=== PATIENT | female | born 1995 | race Caucasian/White ===

== ENCOUNTER 2018-03-07 06:58 | Inpatient (IN) | payer MEDICAID ==
[2018-03-07] VITALS (20 sets, daily range): BP systolic 91–138; BP diastolic 48–87; PULSE 71–108; TEMP 97.4–98.3
[~2018-03-07] VITALS: Ht 162.6 cm; Wt 85.0 kg
--- NOTE | 2018-03-07 07:00 | NUR ---
Patient ambulatory onto unit for labor check with report of contractions since 299. Patient changes into gown, plan of care discussed. Patient reports good movement, denies vaginal bleeding or leaking of fluid. EFMs on, VS taken. SVE /1 per Diego PRATT. notified, orders received.
[2018-03-07 07:36] LABS: BASO % 0.1 % (0.0-2.0); EOS # 0.2 (0.0-0.7); EOS % 1.6 % (0-4.0); GRAN # 5.2 (1.4-6.5); GRAN % 53.6 % (42.2-75.2); HEMOGLOBIN 10.5 g/dl (12.5-16.0); LYMPH # 3.6 (1.2-3.4); MEAN CELL VOLUME 81 fl (80.0-100.0); MEAN CORPUSCULAR HEMOGLOBIN 26 pg (27.0-31.0); MEAN CORPUSCULAR HGB CONC 32 g/dl (33.0-37.0); MONO # 0.7 (0.1-0.6); MONO % 7.3 % (1.7-9.3); PLATELET COUNT 202 K/mm3 (130-400); RED BLOOD COUNT 4.11 M/mm3 (4.10-5.30); REDCELL DISTRIBUTION WIDTH-CV 14.8 % (11.5-14.5)
[2018-03-07 07:40] LABS: HEMATOCRIT 33.3 % (37.0-47.0)
[2018-03-07 07:47] LABS: TRICYCLIC ANTIDEPRESS URINE NEGATIVE
--- NOTE | 2018-03-07 07:50 | NUR ---
Pt sitting upright for epidural placement. Difficulty tracing FHR due to maternal position. RN at bedside adjusting monitors. FHR audible. 0758-Test dose administered by Moreno Aguilar CRNA. No adverse effects noted. See anesthesia record. Pt repositioned WL. Plan of care and safety reviewed. Call light within reach. No questions or concerns at this time.
--- NOTE | 2018-03-07 08:30 | NUR ---
Dr. Smyth on unit. Reviews FHR tracing. To patient room - SVE with AROM. 9/100/+1 with clear fluid noted. Plan of care reviewed with patient.
--- NOTE | 2018-03-07 09:25 | NUR ---
Recurrent early FHR decelerations noted. Patient c/o feeling increased vaginal pressure. SVE - complete/+1. Dr. Smyth on unit and notified.
--- NOTE | 2018-03-07 09:47 | NUR ---
0930 - Patient begins to push with contractions. Dr. Smyth remains on unit. 43 - Dr. Smyth called to room for delivery. Patient prepped and continues to push with contractions. 47 - Spontaneous vaginal delivery of viable female infant by Dr. Smyth. Cord clamped and cut and to the care of the nursery RN. 54 - Spontaneous delivery of placenta by Dr. Smyth. Pitocin infusing at 333ml/hr per orders and protocol. Fundus firm, lochia WNL. Repair of 2nd degree laceration by Dr. Smyth.
[2018-03-08 00:30] VITALS: BP 124/87; PULSE 80; TEMP 97.9
[2018-03-08 04:25] VITALS: BP 138/66; PULSE 75; TEMP 97.7
[2018-03-08 08:53] VITALS: BP 122/85; PULSE 79; TEMP 97.8
--- NOTE | 2018-03-08 10:19 | NUR ---
Initial visit; Parents thanked Outbound Sales Specialist for offering congratulations and God's blessings for the of their daughter. Outbound Sales Specialist thanked family for choosing [facility].
[2018-03-08] MEDS ORDERED: IBU800 M1 PO (10:30)
[2018-03-08] MEDS ORDERED: BREASTPUMP MC (10:31)
[2018-03-08 15:59] VITALS: BP 122/76; PULSE 90; TEMP 97.8
[2018-03-08 19:45] VITALS: BP 125/75; PULSE 82; TEMP 98.1
--- NOTE | 2018-03-08 22:40 | NUR ---
DISCHARGE INSTRUCTIONS REVIEWED WITH PT, PRESCRIPTION FOR BREAST PUMP PROVIDED TO PT. QUESTIONS ENCOURAGED AND ANSWERED. MOTHER LEFT THE UNIT WITH BABY AND FAMILY FOR HOME, ESCORTED TO VEHICLE BY Wil TOMPKINS.
== END 2018-03-08 22:40 | disposition home or self-care (01) | DRG 807 ==
LOC: LDRO 06:58 → OB 07:25 → LDR 07:25 → OB 13:00
PROVIDERS: ADMIT Student in an Organized Health Care Education/Training Program
PROC: 10E0XZZ Delivery of Products of Conception, External Approach (ICD-10-PCS; principal; 2018-03-07)
PROC: 0KQM0ZZ Repair Perineum Muscle, Open Approach (ICD-10-PCS; 2018-03-07)
DX: O70.1 Second degree perineal laceration during delivery (principal); Z37.0 Single live birth; Z3A.39 39 weeks gestation of pregnancy; O76 Abnormality in fetal heart rate and rhythm complicating labor and delivery; O69.81X0 Labor and delivery complicated by cord around neck, without compression, not applicable or unspecified; O99.02 Anemia complicating childbirth; O99.344 Other mental disorders complicating childbirth; F41.8 Other specified anxiety disorders; J45.909 Unspecified asthma, uncomplicated; Z28.21 Immunization not carried out because of patient refusal; O26.893 Other specified pregnancy related conditions, third trimester; Z67.11 Type A blood, Rh negative
CPT/HCPCS: J2590; J2791; J7120

== ENCOUNTER 2021-04-23 22:57 | Emergency (ER) | payer SELFPAY ==
[~2021-04-23] VITALS: Ht 162.6 cm; Wt 67.7 kg
[~2021-04-23 22:57] MED LIST: BREASTPUMP MC; IBU800 M1 PO
[2021-04-24 00:33] VITALS: TEMP 99.3
[2021-04-24 01:44] LABS: BASO % 0.1 % (0.0-2.0); EOS % 0.4 % (0.0-4.0); GRAN # 5.2 K/mm3 (1.4-6.5); HEMATOCRIT 43.8 % (37.0-47.0); HEMOGLOBIN 14.7 g/dl (12.5-16.0); LYMPH % 15.1 % (20.0-51.0); MEAN CELL VOLUME 87 fl (80.0-100.0); MEAN CORPUSCULAR HEMOGLOBIN 29 pg (27-31); MEAN CORPUSCULAR HGB CONC 34 g/dl (33.0-37.0); MEAN PLATELET VOLUME 10.1 fl (7.4-10.4); MONO # 0.4 K/mm3 (0.1-0.6); MONO % 6.1 % (1.7-9.3); PLATELET COUNT 188 K/mm3 (130-400); RED BLOOD COUNT 5.02 M/mm3 (4.10-5.30); REDCELL DISTRIBUTION WIDTH-CV 12.5 % (11.5-14.5)
[2021-04-24 01:58] LABS: ALBUMIN 4.1 gm/dL (3.5-5.0); BILIRUBIN,TOTAL 0.7 mg/dL (0.2-1.2); CALCIUM 9.3 mg/dL (8.4-10.2); CREATININE, serum 0.87 mg/dL (0.57-1.11); POTASSIUM 3.8 mmol/L (3.5-4.5); TOTAL PROTEIN 7.3 gm/dL (6.2-8.1)
[2021-04-24 02:40] LABS: COLLECTION METHOD CLEAN CATCH
[2021-04-24 02:48] LABS: MUCOUS Present (NOT PRESENT); PH 5 (5-8); URINE APPEARANCE Hazy (CLEAR/HAZY); URINE BACTERIA None Seen /hpf (NONE SEEN); URINE BILIRUBIN Negative (NEGATIVE); URINE BLOOD Negative (NEGATIVE); URINE COLOR Yellow (YELLOW); URINE GLUCOSE Negative (NEGATIVE); URINE KETONE 2+ (NEGATIVE); URINE LEUKOCYTE ESTERASE Negative (NEGATIVE); URINE NITRATE Negative (NEGATIVE); URINE PROTEIN(semi-quant) 1+ (NEGATIVE); URINE RBC 0-2 /hpf (0-2); URINE UROBILINOGEN Negative (NEGATIVE)
[2021-04-24] MEDS ORDERED: ZOFRAN ODT4 MG PO (03:07)
[2021-04-24 03:09] VITALS: BP 121/81; PULSE 73
== END 2021-04-24 03:19 | disposition home or self-care (01) ==
LOC: COL.ER 22:57
PROVIDERS: Personal Emergency Response Attendant
DX: R05.9 Cough, unspecified (principal)
CPT/HCPCS: J2270; J2405; J7030